=== PATIENT | male | born 1930 | race Caucasian/White ===

== ENCOUNTER 2017-06-05 05:25 | Inpatient (IN) | payer BC, MEDICARE, OTHER ==
[2017-06-05] MEDS ORDERED: Acetaminophen 500 MG Tab PO ONE (05:30)
[2017-06-05] MEDS ORDERED: Celecoxib 200 MG Cap PO ONE (05:30)
[2017-06-05] MEDS ORDERED: Dextrose 5%-Lactated Ringers 1,000 ML IV SCH (06:00)
[2017-06-05] MEDS ORDERED: Albuterol/Ipratropium 3.0-0.5 MG/3 ML Neb Soln NEB ONE (06:30)
[2017-06-05] MEDS ORDERED: Meropenem 500 MG SDV ONE (06:52)
[2017-06-05] MEDS ORDERED: Bupivacaine 0.5%/EPINEPHrine 1:200,000 50 ML MDV ONE (06:52)
[2017-06-05] MEDS ORDERED: Ondansetron 4 MG/2 ML SDV ONE (07:10)
[2017-06-05] MEDS ORDERED: Propofol 200 MG/20 ML SDV ONE ×3 (07:10→08:32)
[2017-06-05] MEDS ORDERED: Dexamethasone 4 MG/ML SDV ONE (07:10)
[2017-06-05] MEDS ORDERED: Glycopyrrolate 0.2 MG/ML 5 ML MDV ONE (07:10)
[2017-06-05] MEDS ORDERED: Succinylcholine 200 MG/10 ML MDV ONE (07:10)
[2017-06-05] MEDS ORDERED: Neostigmine Methylsulfate 1 MG/ML 5 ML Syringe ONE (07:10)
[2017-06-05] MEDS ORDERED: Rocuronium 50 MG/5 ML Vial ONE (07:10)
[2017-06-05] MEDS: Clindamycin Phosphate 900 MG in Sodium Chloride 0.9% 100 ML IV ONE ×2 (07:18→10:09)
[2017-06-05] MEDS ORDERED: Naloxone 0.4 MG/ML SDV IVPUSH PRN (07:25)
[2017-06-05] MEDS ORDERED: HYDROmorphone/Normal Saline 15 MG/30 ML PCA IV PRN (07:25)
[2017-06-05] MEDS ORDERED: fentaNYL 100 MCG/2 ML SDV ONE (07:59)
[2017-06-05] MEDS ORDERED: Midazolam 1 MG/ML 2 ML SDV ONE (08:00)
[2017-06-05] MEDS ORDERED: hydrOXYzine HCl 100 MG/2 ML SDV IM ONE (08:57)
[2017-06-05] MEDS ORDERED: Ondansetron 4 MG/2 ML SDV IV PRN (09:56)
[2017-06-05] MEDS ORDERED: Acetaminophen/HYDROcodone 325-5 MG Tab PO PRN (09:57)
[2017-06-05] MEDS ORDERED: Cyclobenzaprine 10 MG Tab PO PRN (10:05)
[2017-06-05] MEDS: ceFAZolin 2 GM in Sodium Chloride 0.9% 50 ML IV SCH ×2 (12:06→20:02)
[2017-06-05] MEDS: Doxazosin 4 MG Tab PO SCH ×2 (12:06→14:42)
[2017-06-05] MEDS ORDERED: Lisinopril 10 MG Tab PO SCH (14:00)
[2017-06-05] MEDS: Dextrose 5%-Lactated Ringers 1,000 ML IV SCH ×2 (15:59→22:54)
[2017-06-05] MEDS ORDERED: Enoxaparin 40 MG/0.4 ML Syringe SUBCUT SCH (16:00)
[2017-06-05] MEDS: SYMBICORT INH SCH (20:03)
[2017-06-05] MEDS: Docusate Sodium 100 MG Cap PO SCH (20:03)
[2017-06-05] MEDS ORDERED: Doxazosin 4 MG Tab PO SCH (21:00)
[2017-06-06 07:25] VITALS: BP 140/71
[2017-06-06] MEDS: Docusate Sodium 100 MG Cap PO SCH (08:47)
[2017-06-06] MEDS: SYMBICORT INH SCH (08:50)
[2017-06-06] MEDS ORDERED: Aspirin 325 MG Tab.EC PO SCH (09:00)
[2017-06-06] MEDS ORDERED: Losartan 50 MG Tab PO SCH (09:00)
[2017-06-06] MEDS ORDERED: Warfarin 5 MG Tab PO ONE (10:00)
[2017-06-06] MEDS ORDERED: Enoxaparin 120 MG/0.8 ML Syringe SUBCUT ONE (10:00)
--- NOTE | 2017-06-08 08:23 | DISCH ---
FINAL DIAGNOSES: 1. Incarcerated incisional and umbilical hernias. 2. History of chronic obstructive pulmonary disease. 3. History of atrial fibrillation. 4. History of hypertension. 5. 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 OPERATIVE PROCEDURES: Done on the date of admission; diagnostic laparoscopy with: 1. Repair of incarcerated incisional hernia with mesh. 2. Repair of incarcerated umbilical hernia with mesh. 3. Placement of Vicryl mesh to displace small bowel from pelvic and abdominal beach to limit recurrent adhesion formation. HOSPITAL COURSE: This is an 87-year-old referred from the [facility] for repair of an incisional hernia. He was noted also to have a longstanding umbilical hernia. On the date of admission, both of these were repaired laparoscopically. He had quite a bit in the way of adhesions were present, and to limit recurrent adhesion formation, Vicryl mesh was also then placed along the pelvic sidewalls and up against the abdominal wall. Postoperatively, no significant problems were noted. He is tolerating a regular diet and urinating satisfactorily. He will be sent home on his usual home medications. He will be restarted on his Coumadin today. He will receive 10 mg of Coumadin today and to restart the 5 mg tomorrow. Also, give a Lovenox injection today prior to discharge. He has [place] at home, which he can use p.r.n., along with Tylenol or Advil as p.r.n. Otherwise, he will continue present home medications. Follow up with Dr. Freeman in [facility] on 06/17/2017.
--- NOTE | 2017-06-11 10:21 | OR ---
DATE OF PROCEDURE: 06/05/2017 PREOPERATIVE DIAGNOSIS: Incarcerated incisional and umbilical hernias. POSTOPERATIVE DIAGNOSES: 1. Incarcerated incisional and umbilical hernias. 2. Marked intraabdominal and pelvic adhesions. OPERATIVE PROCEDURES: Diagnostic laparoscopy with lysis of adhesions and: 1. Repair of incarcerated incisional hernia with mesh (30178). 2. Repair of incarcerated umbilical hernia with mesh (53344). 3. Placement of Vicryl mesh to displace small bowel away from pelvic and abdominal beach to limit recurrent adhesion formation (67581). ANESTHESIA: General. ASSISTANTS: Sis Camejo PA-C, and CAN Marie. INDICATION FOR PROCEDURE: This is an 87-year-old male referred from the [facility] for repair of an incisional hernia. 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 He also has a longstanding umbilical hernia. Both of these have some components appearing to be not reducible. Plan is to proceed with a diagnostic laparoscopy, lysis of adhesions and repair of the hernias with mesh. The potential need for an open procedure was gone over with the patient. Potential risks, otherwise, including bleeding, infection, injury to underlying viscera, problems with mesh becoming infected, hernia recurring, as well as remote possibility of cardiopulmonary, septic, or hemorrhagic complications leading to were discussed, and the patient wishes to proceed. DETAILS OF PROCEDURE: The patient was taken to the operating room and placed in a supine position. After general endotracheal anesthesia was induced, a Feliciano catheter was inserted, and the abdomen was prepped and draped. In the right lateral abdomen, a transverse incision was made, and the peritoneal cavity entered under direct vision with an Optiview trocar and inflated to 15 mmHg pressure of CO2. Laparoscope was then reinserted. No underlying trocar insertion site injuries were seen. Following this, 5 mm trocars were placed, one in the right upper quadrant and one in the right lower quadrant, and the abdomen was examined. The patient was noted to have quite a bit in the way of adhesions between the omentum, small bowel, and anterior abdominal wall. These included areas of incarceration in both the incisional and umbilical hernias. These were taken down with a combination of sharp and Harmonic scalpel type dissection, along with the external portion. Once the hernias were reduced and the adhesions were cleared, the area was mapped out. It was decided to use 2 separate pieces of mesh for this repair. The larger of the hernias was in the left mid- paramedian area, and a Ventralight ST hernia mesh with a 20 cm circumference was selected. This was the mesh with the balloon positioning system. This was soaked in antibiotic- containing saline solution, placed in intraperitoneal location, and pulled up through a stab wound, which came through in the center of the hernia. The mesh was then oriented with the polypropylene side facing the abdominal wall and the balloon inflated. Using the absorbable tacking screws, the mesh was then circumferentially fixed. The balloon was then deflated and withdrawn. The second ventral hernia patch used for the umbilicus was 11 cm round. This was a non- balloon mesh with an external ring keeping it in a flat position. This was likewise placed in antibiotic saline solution and a single suture had been placed in the center, and the polypropylene side was pulled up over the center of the hernia and the hernia was likewise fixed with absorbable tacking screws. With the mesh now in place, the patient was felt to be at increased risk for recurrent adhesion formation between the viscera, and the abdominal wall, as well as the pelvic wall. Given this, a 12 cm Vicryl mesh was then placed from the depths of the pelvis, behind the urinary bladder, along the pelvic sidewalls, to displace the viscera from those areas and prevent recurrent adhesion formation. At that point, no further problems were noted. The 12-mm camera port was closed with 0 Vicryl stitch and the skin of each incision with 4-0 Vicryl skin stitch. Dressing was applied. The patient was taken to the recovery room in a satisfactory condition. Physician power plant assistant, Sis Camejo, played an essential role in assisting in this case, helping to position the patient, retract structures as needed, as well as suturing and cutting sutures when indicated. Her presence improved patient safety and decreased the operative time. Brice Freeman MD /[id number]
== END 2017-06-06 10:40 | disposition home or self-care (01) | DRG 355 ==
LOC: JP.MS 05:25 → JP.SDS 05:25 → EDSTATUS 07:30 → JP.2SS 09:00
PROVIDERS: ADMIT Surgery; ATTEND Surgery
PROC: 3E0M05Z Introduction of Adhesion Barrier into Peritoneal Cavity, Open Approach (ICD-10-PCS; principal; 2017-06-05)
PROC: 0WUF4JZ Supplement Abdominal Wall with Synthetic Substitute, Percutaneous Endoscopic Approach (ICD-10-PCS; principal; 2017-06-05)
DX: K43.0 Incisional hernia with obstruction, without gangrene (principal); K42.0 Umbilical hernia with obstruction, without gangrene; I48.91 Unspecified atrial fibrillation; Z79.01 Long term (current) use of anticoagulants; I10 Essential (primary) hypertension; Z85.54 Personal history of malignant neoplasm of ureter; Z90.5 Acquired absence of kidney; K66.0 Peritoneal adhesions (postprocedural) (postinfection)
CPT/HCPCS: 36415; 80048; 83735; 84100; 85027; 85610; 88302; 93005; 93010; 94762; A9270-GY; C1781; J0330; J0690; J1100; J1170; J1650; J2185; J2250; J2405; J2704; J2710; J3010; J3410; J7030; J7042; J7050; J7620; S0077